=== PATIENT | male | born 1985 | race Caucasian/White ===

== ENCOUNTER 2019-05-09 06:31 | Day surgery (SDC) | payer OTHER ==
[~2019-05-09 06:31] MED LIST: Dextrose 5%-0.45% NaCl 1,000 ML IV SCH; Midazolam 1 MG/ML 2 ML SDV ONE; Sodium Chloride 0.9% 10 ML Syringe FLUSH PRN; fentaNYL 100 MCG/2 ML SDV ONE
[2019-05-09] MEDS ORDERED: Midazolam 1 MG/ML 2 ML SDV IV ONE ×4 (06:32→07:21)
[2019-05-09] MEDS ORDERED: fentaNYL 100 MCG/2 ML SDV IV ONE ×3 (06:32→07:19)
--- NOTE | 2019-05-09 10:30 | OR ---
DATE: 05/09/2019 PROCEDURE: Total colonoscopy and multiple pinch biopsies. INSTRUMENT USED: [id number] Olympus video colonoscope. PREMEDICATIONS: Fentanyl 100 mcg intravenous, Versed 3 mg intravenous. Nasal O2 cannula. The procedure was done under pulse oximetry, BP recording, and monitoring analyst. INDICATION: The patient with rectal bleeding. Colonoscopic examination is done for detection of any polypoid lesions and removal, endoscopic hemostasis therapy if needed. DESCRIPTION OF PROCEDURE: Initial rectal exam showed some mild diffuse tenderness. Rigid anoscopy showed small internal hemorrhoids without bleeding from them. The colonoscope was passed with ease up to the ileocecal area. Photographs were taken of the normal-appearing cecum identified by landmarks of appendiceal orifice and double-bulged ileocecal folds. No bleeding was noted from any of the visualized areas at the commencement of the examination. No stricture. No vascular ectasia. No large isolated ulcerations seen. No polyp or tumor mass identified. Probing the proximal sides of folds and flexures using adequate distention and clearing of the stool material, withdrawal of the scope was made. Patchy erythema of the mucosa was noted in the distal descending colon, NBI views were obtained, photographs were taken, multiple pinch biopsies were obtained and sent for histopathology. No bleeding was noted from any of the visualized areas at the completion of the examination. IMPRESSION: Internal hemorrhoids. The patient tolerated the procedure well. [facility] /[id number]
== END 2019-05-09 09:35 | disposition home or self-care (01) ==
LOC: DL.ENDO 06:31
PROVIDERS: ATTEND Internal Medicine Gastroenterology
DX: K62.5 Hemorrhage of anus and rectum (principal); K64.8 Other hemorrhoids; F17.210 Nicotine dependence, cigarettes, uncomplicated; E66.09 Other obesity due to excess calories
CPT/HCPCS: 45380; J2250; J3010; J7042

== ENCOUNTER 2020-08-01 13:43 | Emergency (ER) | payer OTHER ==
--- NOTE | 2020-08-01 14:57 | CR ---
PROCEDURE INFORMATION: Exam: XR Left Ribs with PA Chest Exam date and time: 08/01/2020 2:05 PM Age: 34 years old Clinical indication: Other: Fall/pain; Additional info: Fall off skateboard, rib pain TECHNIQUE: Imaging protocol: XR Left ribs with PA chest. Views: 3 views COMPARISON: No relevant prior studies available. FINDINGS: Lungs: The lungs are symmetric, well expanded and clear. No pulmonary contusion is identified. Pleural spaces: There are no pleural effusions. There is no pneumothorax. Heart/Mediastinum: The heart size is normal as are the mediastinal and hilar contours. The pulmonary vessels are normal. Bones/joints: No acute osseous pathology is identified. No acute left-sided rib fracture is appreciated. IMPRESSION: No acute cardiopulmonary disease process identified.
--- NOTE | 2020-08-01 15:24 | EDM.PDOC ---
Scribed by Enriqueta Mcnamara 08/01/20 1524 for Xiao Nieto NP ED HPI GENERAL MEDICAL PROBLEM - General Chief Complaint: Chest Pain Stated Complaint: FELL OFF SKATEBOARD HURTS TO BREATH,COUGH Time Seen by Provider: 08/01/20 14:30 Source of Information: Reports: Patient, RN, RN Notes Reviewed History Limitations: Reports: No Limitations - History of Present Illness INITIAL COMMENTS - FREE TEXT/NARRATIVE: Patient is a 34-year-old male with complaint of left rib pain. Patient states he was teaching his nephew how to skateboard and fell. Rates pain 8/10. Difficulty with coughing, breathing and sneezing. Denies hitting head or getting knocked out. He is a smoker. Onset Date: 07/29/20 Duration: Constant Location: Reports: Chest Quality: Reports: Ache Severity: Moderate Improves with: Reports: None Worsens with: Reports: None Associated Symptoms: Reports: No Other Symptoms Left Chest Pain Score (Numeric/FACES): 8 - Related Data Allergies Allergy/AdvReac Type Severity Reaction Status Date / Time No Known Allergies Allergy Verified 08/01/20 14:01 Home Meds: Home Meds Ibuprofen [Advil] 400 mg PO Q6H PRN 05/08/19 [History] Past Medical History HEENT History: Reports: Impaired Vision, Other (See Below) Other HEENT History: CORRECTIVE VISION SURGERY AT 11 YEARS OLDTOOTH PAIN Cardiovascular History: Reports: None Respiratory History: Reports: None, Other (See Below) Other Respiratory History: RECENT CONGESTION; UNDIAGNOSED SLEEP APNEA Gastrointestinal History: Reports: Other (See Below) Other Gastrointestinal History: BRIGHT RED BLEEDING WITH BOWEL MOVEMENTS Genitourinary History: Reports: None Musculoskeletal History: Reports: Back Pain, Chronic Neurological History: Reports: None Psychiatric History: Reports: None Endocrine/Metabolic History: Reports: None Hematologic History: Reports: None Immunologic History: Reports: None Oncologic (Cancer) History: Reports: None Dermatologic History: Reports: None - Infectious Disease History Infectious Disease History: Reports: None - Past Surgical History Head Surgeries/Procedures: Reports: None Cardiovascular Surgical History: Reports: None Respiratory Surgical History: Reports: None GI Surgical History: Reports: None Male Surgical History: Reports: None Endocrine Surgical History: Reports: None Neurological Surgical History: Reports: None Musculoskeletal Surgical History: Reports: None Oncologic Surgical History: Reports: None Dermatological Surgical History: Reports: None Social & Family History - Family History Family Medical History: No Pertinent Family History - Tobacco Use Tobacco Use Status *Q: Current Every Day Tobacco User Years of Tobacco use: 16 Packs/Tins Daily: 1 - Caffeine Use Caffeine Use: Reports: Energy Drinks - Alcohol Use Days Per Week of Alcohol Use: 7 Number of Drinks Per Day: 6 Total Drinks Per Week: 42 - Recreational Drug Use Recreational Drug Use: No ED ROS GENERAL - Review of Systems Review Of Systems: Comprehensive ROS is negative, except as noted in HPI. ED EXAM, GENERAL - Physical Exam Exam: See Below Exam Limited By: No Limitations General Appearance: Alert, WD/WN, Moderate Distress Eye Exam: Bilateral Eye: EOMI, Normal Inspection, PERRL Ears: Normal External Exam, Normal Canal, Hearing Grossly Normal, Normal TMs Nose: Normal Inspection, Normal Mucosa, No Blood Throat/Mouth: Normal Inspection, Normal Lips, Normal Teeth, Normal Gums, Normal Oropharynx, Normal Voice, No Airway Compromise Head: Atraumatic, Normocephalic Neck: Normal Inspection, Supple, Non-Tender, Full Range of Motion Respiratory/Chest: Crackles (bases bilaterally) Cardiovascular: Normal Peripheral Pulses, Regular Rate, Rhythm, No Edema, No Gallop, No JVD, No Murmur, No Rub GI/Abdominal: Normal Bowel Sounds, Soft, Non-Tender, No Organomegaly, No Distention, No Abnormal Bruit, No Mass (Male) Exam: Deferred Rectal (Males) Exam: Deferred Back Exam: Other (pain in left lateral ribs) Extremities: Normal Inspection, Normal Range of Motion, Non-Tender, Normal Capillary Refill, No Pedal Edema Neurological: Alert, Oriented, CN II-XII Intact, Normal Cognition, Normal Gait, Normal Reflexes, No Motor/Sensory Deficits Psychiatric: Normal Affect, Normal Mood Skin Exam: Warm, Dry, Intact, Normal Color, No Rash Lymphatic: No Adenopathy Course - Vital Signs Last Recorded V/S: Last Vital Signs Temp 98.0 F 08/01/20 14:04 Pulse 110 H 08/01/20 14:04 Resp 18 08/01/20 14:04 BP 143/100 H 08/01/20 14:04 Pulse Ox 99 08/01/20 14:04 - Radiology Interpretation Free Text/Narrative:: Left ribs xray with PA chest: PROCEDURE INFORMATION: Exam: XR Left Ribs with PA Chest Exam date and time: 08/01/2020 2:05 PM Age: 34 years old Clinical indication: Other: Fall/pain; Additional info: Fall off skateboard, rib pain TECHNIQUE: Imaging protocol: XR Left ribs with PA chest. Views: 3 views COMPARISON: No relevant prior studies available. FINDINGS: Lungs: The lungs are symmetric, well expanded and clear. No pulmonary contusion is identified. Pleural spaces: There are no pleural effusions. There is no pneumothorax. Heart/Mediastinum: The heart size is normal as are the mediastinal and hilar contours. The pulmonary vessels are normal. Bones/joints: No acute osseous pathology is identified. No acute left-sided rib fracture is appreciated. IMPRESSION: No acute cardiopulmonary disease process identified. Thank you for allowing us to participate in the care of your patient. Dictated and Authenticated by: Hiarl Odom MD 08/01/2020 2:57 PM Central Time ([place] & [place]) See rad report Departure - Departure Time of Disposition: 15:22 Disposition: Home, Self-Care 01 Condition: Good Clinical Impression: Contusion Qualifiers: Encounter type: initial encounter Contusion area: thoracic wall Front or back of thoracic wall: front Thoracic wall location detail: left Qualified Code(s): S20.212A - Contusion of left front wall of thorax, initial encounter - Discharge Information *PRESCRIPTION DRUG MONITORING PROGRAM REVIEWED*: No *COPY OF PRESCRIPTION DRUG MONITORING REPORT IN PATIENT [place]: No Instructions: Contusion, [id number] Forms: ED Department Discharge Additional Instructions: Alternate Tylenol and ibuprofen for pain Alternate heat and ice as tolerated Lifting restriction of 10 pounds for the next 2 weeks If no improvement follow-up with your primary care provider Sepsis Event Note (ED) - Evaluation Sepsis Screening Result: No Definite Risk - Focused Exam Vital Signs: Vital Signs Temp Pulse Resp BP Pulse Ox 08/01/20 14:04 98.0 F 110 H 18 143/100 H 99 I have read and agree with the documentation that has been completed regarding this visit. By signing this record, I attest that the documentation was completed in my physical presence and is an accurate record of the encounter.
== END 2020-08-01 15:28 | disposition home or self-care (01) ==
LOC: DL.ED 13:43
DX: S20.212A Contusion of left front wall of thorax, initial encounter (principal); Z72.0 Tobacco use; V00.131A Fall from skateboard, initial encounter
CPT/HCPCS: 71101-LT; 99282; 99283-25